=== PATIENT | female | born 1950 | race Caucasian/White ===

== ENCOUNTER 2017-12-16 21:10 | Inpatient (IN) | payer OTHER ==
[~2017-12-16] VITALS: Ht 160 cm; Wt 76.4 kg
[~2017-12-16 21:10] MED LIST: ALPR0.5T5 PO; ASPI81TA50 PO; ATOR40TA78 PO; CYCL-259 PO; DILT120C11 PO; FAMO40TA4 PO; FURO40TA6 PO; GABA300C10 PO; INSU100I13 SQ; INSU100V11 INJ; INSU100V11 SQ; METF10002 PO; METO50TA82 PO; MULT-750 PO; NORT25CA PO; PANT40TA5 PO; POLY17PO5 PO; POTA10TA11 PO
[2017-12-16] MEDS ORDERED: SODIUM CHLORIDE 0.9% 1,000 ML IV ONE (21:37)
[2017-12-16] MEDS ORDERED: SODIUM CHLORIDE FLUSH 10ML SYR IVF ONE (22:00)
[2017-12-16] MEDS ORDERED: ONDANSETRON 2MG/ML, 2ML IVPush ONE (22:00)
[2017-12-16 22:35] LABS: BASOPHILS # (AUTO) 0.04 x10^3/uL (0-0.1); BASOPHILS % (AUTO) 0 % (0-1); EOSINOPHILS # (AUTO) 0.06 x10^3/uL (0-0.4); EOSINOPHILS % (AUTO) 1 % (1-7); LYMPHOCYTES # (AUTO) 1.61 x10^3/uL (1-3.4); LYMPHOCYTES % (AUTO) 19 % (22-44); MD NO; MEAN CORPUSCULAR HEMOGLOBIN 29.8 pg (27.0-34.8); MEAN CORPUSCULAR HGB CONC 34.3 g/dL (32.4-35.8); MEAN CORPUSCULAR VOLUME 87.1 fL (80-100); MEAN PLATELET VOLUME 6.6 fL (7.4-10.4); MONOCYTES # (AUTO) 0.92 x10^3/uL (0.2-0.8); MONOCYTES % (AUTO) 11 % (2-9); NEUTROPHILS # (AUTO) 5.87 x10^3/uL (1.8-6.8); NEUTROPHILS % (AUTO) 69 % (42-75); PLATELET COUNT 410 x10^3/uL (130-400); RED BLOOD COUNT 4.56 x10^6/uL (3.82-5.3); RED CELL DISTRIBUTION WIDTH 13.2 % (9.6-15.2)
[2017-12-16 22:41] LABS: MICROSCOPIC INDICATED
[2017-12-16 22:43] LABS: ALANINE AMINOTRANSFERASE 25 U/L (12-78); ALBUMIN 4.1 g/dL (3.4-5.0); ANION GAP 11 mmol/L (5-15); CALCIUM 11.4 mg/dL (8.5-10.1); CHLORIDE 89 mmol/L (98-107); CREATININE 1.24 mg/dL (0.55-1.02)
[2017-12-16] MEDS ORDERED: ONDANSETRON ODT 4 MG ONE (22:44)
[2017-12-16 22:48] LABS: ALKALINE PHOSPHATASE 93 U/L (45-117); BILIRUBIN,TOTAL 0.9 mg/dL (0.2-1.0); TOTAL PROTEIN 7.7 g/dL (6.4-8.2); TROPONIN I 0.029 ng/mL (0.000-0.045)
[2017-12-16 22:50] LABS: CULTURE INDICATED? NO
[2017-12-16] MEDS ORDERED: POTASSIUM CHLORIDE 20 MEQ TAB.ER.PRT PO ONE (23:00)
[2017-12-16] MEDS ORDERED: ONDANSETRON ODT 4 MG PO ONE (23:00)
[2017-12-16] MEDS ORDERED: SODIUM CHLORIDE 0.9% 1,000ML IVBOLUS ONE (23:00)
[2017-12-16] MEDS ORDERED: POTASSIUM CHLORIDE 20 MEQ TAB.ER.PRT ONE (23:16)
[2017-12-16] MEDS ORDERED: MAGNESIUM SULFATE PMX 2GM/50ML 50 ML IV ONE (23:30)
[2017-12-16] MEDS ORDERED: GUAIFENESIN/DM 200-20MG, 10ML UDC PO PRN (23:30)
[2017-12-16] MEDS ORDERED: ONDANSETRON ODT 4 MG PO PRN (23:30)
[2017-12-16] MEDS: INSULIN LISPRO 100 UNITS/ML, PEN SQ-INSULIN SCH (23:30)
[2017-12-16] MEDS ORDERED: NS + 40MEQ KCL 1,000 ML IV SCH (23:30)
[2017-12-16 23:40] VITALS: BP 157/71
[2017-12-17] MEDS: ENOXAPARIN 40 MG/0.4 ML SQ SCH (00:33)
[2017-12-17] MEDS: ACETAMINOPHEN 325 MG TABLET PO PRN ×3 (00:33→17:15)
[2017-12-17 02:00] VITALS: BP 166/64
[2017-12-17 02:47] LABS: BASOPHILS # (AUTO) 0.03 x10^3/uL (0-0.1); BASOPHILS % (AUTO) 0 % (0-1); EOSINOPHILS # (AUTO) 0.09 x10^3/uL (0-0.4); EOSINOPHILS % (AUTO) 1 % (1-7); LYMPHOCYTES # (AUTO) 1.57 x10^3/uL (1-3.4); LYMPHOCYTES % (AUTO) 18 % (22-44); MD NO; MEAN CORPUSCULAR HEMOGLOBIN 30.1 pg (27.0-34.8); MEAN CORPUSCULAR HGB CONC 34.6 g/dL (32.4-35.8); MEAN CORPUSCULAR VOLUME 86.8 fL (80-100); MEAN PLATELET VOLUME 6.7 fL (7.4-10.4); MONOCYTES # (AUTO) 0.95 x10^3/uL (0.2-0.8); MONOCYTES % (AUTO) 11 % (2-9); NEUTROPHILS # (AUTO) 6.02 x10^3/uL (1.8-6.8); NEUTROPHILS % (AUTO) 70 % (42-75); PLATELET COUNT 365 x10^3/uL (130-400); RED BLOOD COUNT 4.31 x10^6/uL (3.82-5.3); RED CELL DISTRIBUTION WIDTH 13.9 % (9.6-15.2)
[2017-12-17 02:59] LABS: ANION GAP 8 mmol/L (5-15); CALCIUM 11.1 mg/dL (8.5-10.1); CHLORIDE 91 mmol/L (98-107); CREATININE 1.27 mg/dL (0.55-1.02)
[2017-12-17 03:10] LABS: THYROID STIMULATING HORMONE 0.782 mIU/L (0.358-3.740)
[2017-12-17 06:56] VITALS: BP 162/78
[2017-12-17] MEDS: INSULIN LISPRO 100 UNITS/ML, PEN SQ-INSULIN SCH ×4 (08:12→21:37)
[2017-12-17] MEDS ORDERED: SODIUM CHLORIDE 0.9% 1,000 ML IV SCH (10:30)
[2017-12-17 12:19] VITALS: BP 161/81
[2017-12-17] MEDS: SODIUM CHLORIDE 1 GM TABLET PO SCH ×3 (17:15→21:36)
[2017-12-17 19:08] VITALS: BP 156/80
[2017-12-17] MEDS ORDERED: INSULIN GLARGINE 100 UNITS/ML, PEN SQ-INSULIN SCH (21:00)
[2017-12-17] MEDS: ATORVASTATIN 40 MG TABLET PO SCH (21:36)
[2017-12-17] MEDS: GABAPENTIN 300 MG CAPSULE PO SCH (21:37)
[2017-12-17] MEDS: METOPROLOL TARTRATE 50 MG TABLET PO SCH (21:37)
[2017-12-18 01:33] VITALS: BP 160/79
[2017-12-18] MEDS: ENOXAPARIN 40 MG/0.4 ML SQ SCH ×2 (03:48→23:48)
[2017-12-18 05:32] LABS: BASOPHILS # (AUTO) 0.07 x10^3/uL (0-0.1); BASOPHILS % (AUTO) 1 % (0-1); EOSINOPHILS # (AUTO) 0.27 x10^3/uL (0-0.4); EOSINOPHILS % (AUTO) 2 % (1-7); LYMPHOCYTES % (AUTO) 20 % (22-44); MD NO; MEAN CORPUSCULAR HEMOGLOBIN 29.4 pg (27.0-34.8); MEAN CORPUSCULAR HGB CONC 33.6 g/dL (32.4-35.8); MEAN CORPUSCULAR VOLUME 87.3 fL (80-100); MEAN PLATELET VOLUME 6.7 fL (7.4-10.4); MONOCYTES # (AUTO) 1.12 x10^3/uL (0.2-0.8); MONOCYTES % (AUTO) 10 % (2-9); NEUTROPHILS # (AUTO) 7.64 x10^3/uL (1.8-6.8); NEUTROPHILS % (AUTO) 67 % (42-75); PLATELET COUNT 415 x10^3/uL (130-400); RED BLOOD COUNT 4.35 x10^6/uL (3.82-5.3)
[2017-12-18 05:44] LABS: ANION GAP 9 mmol/L (5-15); CALCIUM 11.1 mg/dL (8.5-10.1); CHLORIDE 99 mmol/L (98-107)
[2017-12-18 05:45] LABS: CREATININE 1.11 mg/dL (0.55-1.02)
[2017-12-18 07:24] VITALS: BP 145/72
[2017-12-18] MEDS: GABAPENTIN 300 MG CAPSULE PO SCH ×2 (08:13→22:03)
[2017-12-18] MEDS: PANTOPROZOLE 40MG TABLET PO SCH (08:13)
[2017-12-18] MEDS: SODIUM CHLORIDE 1 GM TABLET PO SCH ×3 (08:13→22:03)
[2017-12-18] MEDS: ASPIRIN 81 MG TABLET EC PO SCH (08:13)
[2017-12-18] MEDS: INSULIN LISPRO 100 UNITS/ML, PEN SQ-INSULIN SCH ×4 (08:13→22:02)
[2017-12-18] MEDS: MULTIVITAMIN 1 TABLET PO SCH (08:13)
[2017-12-18] MEDS: METOPROLOL TARTRATE 50 MG TABLET PO SCH ×2 (08:14→22:04)
[2017-12-18 13:05] VITALS: BP 132/69
[2017-12-18] MEDS ORDERED: MAGNESIUM SULFATE PMX 2GM/50ML 50 ML IV ONE (15:30)
[2017-12-18 19:14] VITALS: BP 156/78
[2017-12-18] MEDS ORDERED: INSULIN GLARGINE 100 UNITS/ML, PEN SQ-INSULIN SCH (21:00)
[2017-12-18] MEDS: ATORVASTATIN 40 MG TABLET PO SCH (22:03)
[2017-12-19 01:18] VITALS: BP 131/52
[2017-12-19 06:27] LABS: ANION GAP 7 mmol/L (5-15); CALCIUM 10.5 mg/dL (8.5-10.1); CHLORIDE 96 mmol/L (98-107); CREATININE 0.87 mg/dL (0.55-1.02)
[2017-12-19 07:22] VITALS: BP 158/81
[2017-12-19] MEDS: SODIUM CHLORIDE 1 GM TABLET PO SCH ×2 (07:41→16:00)
[2017-12-19] MEDS: GABAPENTIN 300 MG CAPSULE PO SCH (07:41)
[2017-12-19] MEDS: INSULIN LISPRO 100 UNITS/ML, PEN SQ-INSULIN SCH ×3 (07:41→16:00)
[2017-12-19] MEDS: METOPROLOL TARTRATE 50 MG TABLET PO SCH (07:41)
[2017-12-19] MEDS: ASPIRIN 81 MG TABLET EC PO SCH (07:41)
[2017-12-19] MEDS: MULTIVITAMIN 1 TABLET PO SCH (07:41)
[2017-12-19] MEDS: PANTOPROZOLE 40MG TABLET PO SCH (07:41)
[2017-12-19] MEDS ORDERED: MAGNESIUM SULFATE PMX 2GM/50ML 50 ML IV ONE (09:30)
[2017-12-19 13:20] VITALS: BP 152/73
[2017-12-19] MEDS ORDERED: SODI1TAB PO (14:01)
[2017-12-19] MEDS ORDERED: INSU100I13 SQ (14:01)
== END 2017-12-19 17:56 | disposition home or self-care (01) | DRG 682 ==
LOC: ED 23:30 → 4WST 23:31
PROVIDERS: ADMIT Internal Medicine; ATTEND Internal Medicine
PROC: 0T9B70Z Drainage of Bladder with Drainage Device, Via Natural or Artificial Opening (ICD-10-PCS; principal; 2017-12-16)
DX: N17.0 Acute kidney failure with tubular necrosis (principal); G93.40 Encephalopathy, unspecified; E87.1 Hypo-osmolality and hyponatremia; E87.2 Acidosis; E11.65 Type 2 diabetes mellitus with hyperglycemia; E78.5 Hyperlipidemia, unspecified; E83.42 Hypomagnesemia; E83.52 Hypercalcemia; E86.0 Dehydration; E87.6 Hypokalemia; F17.210 Nicotine dependence, cigarettes, uncomplicated; E83.51 Hypocalcemia; I11.0 Hypertensive heart disease with heart failure; I16.0 Hypertensive urgency; I35.0 Nonrheumatic aortic (valve) stenosis; I50.9 Heart failure, unspecified; Z83.3 Family history of diabetes mellitus; Z79.4 Long term (current) use of insulin; Z95.2 Presence of prosthetic heart valve; Z88.5 Allergy status to narcotic agent
CPT/HCPCS: 36415; 70450; 71045; 80048; 80053; 81001; 82533; 82962; 83605; 83735; 83880; 83970; 84100; 84145; 84443; 84484; 85025; 87040; 93005; 96360; J1650; Q0162; J1815; J3475; J3480; J7030